=== PATIENT | male | born 1960 | race Caucasian/White ===

== ENCOUNTER 2017-07-12 00:06 | Emergency (ER) | payer SELFPAY ==
[~2017-07-12] VITALS: Ht 185.4 cm; Wt 76.0 kg
[2017-07-12] MEDS ORDERED: PROMETHAZINE 25 MG/ML, 1ML IM ONE (00:30)
[2017-07-12 00:42] LABS: BASOPHILS # (AUTO) 0.02 x10^3/uL (0-0.1); BASOPHILS % (AUTO) 0 % (0-1); EOSINOPHILS # (AUTO) 0.01 x10^3/uL (0-0.4); EOSINOPHILS % (AUTO) 0 % (1-7); LYMPHOCYTES # (AUTO) 1.47 x10^3/uL (1-3.4); LYMPHOCYTES % (AUTO) 23 % (22-44); MD NO; MEAN CORPUSCULAR HEMOGLOBIN 33.5 pg (27.5-34.5); MEAN CORPUSCULAR HGB CONC 33.8 g/dL (33.2-36.2); MEAN CORPUSCULAR VOLUME 99.3 fL (81-97); MEAN PLATELET VOLUME 6.9 fL (7.4-10.4); MONOCYTES # (AUTO) 0.65 x10^3/uL (0.2-0.8); MONOCYTES % (AUTO) 10 % (2-9); NEUTROPHILS # (AUTO) 4.24 x10^3/uL (1.8-6.8); NEUTROPHILS % (AUTO) 66 % (42-75); PLATELET COUNT 461 x10^3/uL (130-400); RED BLOOD COUNT 4.96 x10^6/uL (4.38-5.82); RED CELL DISTRIBUTION WIDTH 14.9 % (9.4-14.8)
[2017-07-12] MEDS ORDERED: PROMETHAZINE 25 MG/ML, 1ML ONE (00:52)
[2017-07-12 00:53] LABS: ALANINE AMINOTRANSFERASE 37 U/L (12-78); ALBUMIN 3.9 g/dL (3.4-5.0); ANION GAP 12 mmol/L (5-15); CALCIUM 8.2 mg/dL (8.5-10.1); CHLORIDE 106 mmol/L (98-107)
[2017-07-12 00:56] LABS: ALKALINE PHOSPHATASE 66 U/L (45-117); BILIRUBIN,TOTAL 0.3 mg/dL (0.2-1.0); TOTAL PROTEIN 7.7 g/dL (6.4-8.2)
[2017-07-12 01:04] VITALS: BP 134/87
[2017-07-12] MEDS ORDERED: GABAPENTIN (01:55)
[2017-07-12] MEDS ORDERED: SIMVASTATIN (01:55)
[2017-07-12] MEDS ORDERED: VALIUM (01:55)
[2017-07-12] MEDS ORDERED: TRAMADOL (01:55)
[2017-07-12] MEDS ORDERED: GABA600T2 PO (19:45)
[2017-07-12] MEDS ORDERED: SIMV20TA3 PO (19:46)
[2017-07-13] MEDS ORDERED: OMEP40CA6 PO (02:12)
== END 2017-07-12 01:32 | disposition left against medical advice (07) ==
LOC: ED 01:20
DX: F10.120 Alcohol abuse with intoxication, uncomplicated (principal); Z79.899 Other long term (current) drug therapy
CPT/HCPCS: 36415; 80053; 80307; 83690; 85025; 96372; 99284; J2550